=== PATIENT | male | born 1995 | race Caucasian/White ===

== ENCOUNTER 2017-07-03 21:51 | Emergency (ER) | payer OTHER ==
[~2017-07-03] VITALS: Ht 160 cm; Wt 76.4 kg
[2017-07-03 22:19] VITALS: BP 130/74
--- NOTE | 2017-07-04 01:15 | NUR ---
PATIENT LEFT WITHOUT BEING SEEN BY DR. LE. NO FURTHER CARE PROVIDED FOR PATIENT.
== END 2017-07-04 01:15 | disposition left against medical advice (07) ==
LOC: MED 21:51
DX: R10.9 Unspecified abdominal pain (principal); Z53.21 Procedure and treatment not carried out due to patient leaving prior to being seen by health care provider

== ENCOUNTER 2019-08-16 21:38 | Emergency (ER) | payer SELFPAY ==
[~2019-08-16] VITALS: Ht 160 cm; Wt 70.3 kg
[2019-08-16 21:43] VITALS: BP 151/95
--- NOTE | 2019-08-16 21:43 | NUR ---
PT TAKEN TO CHAIR D
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
[2019-08-16 23:10] VITALS: BP 151/95
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
== END 2019-08-16 23:10 ==
LOC: MED 21:38
DX: S00.81XA Abrasion of other part of head, initial encounter (principal); Z02.9 Encounter for administrative examinations, unspecified; W24.1XXA Contact with transmission devices, not elsewhere classified, initial encounter; Y93.89 Activity, other specified; Y92.89 Other specified places as the place of occurrence of the external cause; Y99.8 Other external cause status
CPT/HCPCS: 99283